=== PATIENT | female | born 1990 | race Caucasian/White ===

== ENCOUNTER 2021-04-27 23:09 | Emergency (ER) | payer OTHER ==
[~2021-04-27] VITALS: Ht 165.1 cm; Wt 67.6 kg
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
[2021-04-27 23:33] VITALS: BP 119/63
--- NOTE | 2021-04-28 00:37 | RAD ---
CT HEAD AND C-SPINE WO, CT MAXILLOFACIAL WITHOUT CONTRAST History: Head and facial contusion, LEFT EYE SWELLING, NECK PAIN Comparison: None. Technique: Noncontrast CT of the head, cervical spine and maxillofacial bones. Findings: CT HEAD: There is no evidence for intracranial mass or hemorrhage. There is no hydrocephalus or midline shift. No abnormal extra-axial fluid collections are present. Healy/white matter differentiation is preserved. The skull and scalp are within normal limits. CT CERVICAL SPINE: There is no evidence for fracture in the cervical spine. Alignment is normal. Disc spaces are preserved. No destructive osseous lesions are seen. Limited evaluation of the soft tissues of the neck and of the upper chest is unremarkable. CT MAXILLOFACIAL: No acute facial fracture identified. The bilateral orbits are symmetric and unremarkable. There is left periorbital subcutaneous fat stranding and swelling. Left greater than right maxillary sinus mucous retention cysts or polyps. Impression: 1. No acute intracranial findings. 2. No acute osseous abnormality of the cervical spine. 3. Left periorbital soft tissue swelling without acute abnormality in the facial bones. ------- Exposure: One or more of the following individualized dose reduction techniques were utilized for thi s examination: 1. Automated exposure control 2. Adjustment of the mA and/or kV according to patient size 3. Use of iterative reconstruction technique. Electronically signed by: Mario Perez MD (04/28/2021 12:34 AM) [id number]
== END 2021-04-28 01:36 | disposition home or self-care (01) ==
LOC: ER 23:09
DX: S00.83XA Contusion of other part of head, initial encounter (principal); S09.90XA Unspecified injury of head, initial encounter; H11.32 Conjunctival hemorrhage, left eye; W22.8XXA Striking against or struck by other objects, initial encounter; Y93.89 Activity, other specified; Y92.89 Other specified places as the place of occurrence of the external cause; Y99.8 Other external cause status
CPT/HCPCS: 70450; 70486; 72125; 99284